=== PATIENT | female | born 1990 | race Two or more races ===

== ENCOUNTER 2016-12-23 10:42 | Emergency (ER) | payer BC, OTHER ==
[2016-12-23 11:10] VITALS: BP 121/89; PULSE 73; TEMP 98.4; BMI 21.9
--- NOTE | 2016-12-23 11:37 | EDPRACDOC ---
- General Information Chief Complaint: Hand Pain Stated Complaint: RT HAND PAIN Time Seen by Provider: 12/23/16 11:21 Information Source: Patient Mode of Arrival: Car Home Medications: Home Medications Ketorolac Tromethamine 10 mg PO Q8H PRN #15 tab 12/23/16 Allergies/Adverse Reactions: Allergies Allergy/AdvReac Type Severity Reaction Status Date / Time Penicillins Allergy Rash-Genera Verified 12/23/16 11:10 lized - History of Present Illness Onset: years HPI: Pt c/o R hand and wrist pain x 1 yr. 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 Pt states pain became worse today after working 13 days straight. Denies injury, redness, forearm or elbow pain. Pt states sometime her R hand will cramp closed and she will have pry it open with other hand. R hand dominate Location: Reports: Right, Hand Dominant Hand: Right Mechanism: Reports: Spontaneous Circumstances: Reports: Unknown Associated Signs & Symptoms: Reports: Numbness, Hand Pain, Wrist Pain ED Past Medical History - History Reviewed Yes Nurses notes reviewed and agree except as marked - Patient Medical History Respiratory History: Reports: Asthma (as child) Psychological History: Denies: Depression - Social Medical History Smoking Status: Never smoker Social History: Reports: Marijuana Use ETOH: None Substance Abuse: Illicit Drugs EDM Review of Systems - Review of Systems Constitutional: No Symptoms Reported. negative: Fever, Chills, Weakness, Fatigue, Loss of Appetite Neurological: Numbness Musculoskeletal: Hand, Wrist Integumentary: No Symptoms Reported. negative: Itching, Rash, Bruising, Wound Allergic/Immunologic: No Symptoms Reported. negative: Hives, Itching Hematologic: No Symptoms Reported. negative: Lymphadenopathy, Easy Bruising, Easy Bleeding Psychiatric: No Symptoms Reported. negative: Anxiety, Depression, Hallucinations, Insomnia, Suicidal - Physical Exam Constitutional: Alert (Awake), No apparent distress Oriented to: Time, Person, Place Last recorded Vital Signs: Last Vital Signs Temp 98.4 F 12/23/16 11:05 Pulse 73 12/23/16 11:05 Resp 18 12/23/16 11:05 BP 121/89 12/23/16 11:05 Pulse Ox 100 12/23/16 11:05 Oxygen Pulse Oxygen Saturation 100 O2 Device Room Air Oxygen Flow Rate Fraction of Inspired Oxygen ( FIO2) - HEENT Head: Normal ( normocephalic) - Respiratory/Cardiovascular Respiratory: Normal - CTA (BBS clear to auscultation without adventitious sounds ) Cardiovascular: Normal (RRR without murmur, gallop or rub) - Musculoskeletal Extremities: Normal (Normal tone, Pulses 2+ No cyanosis or edema, FROM) - Integumentary Skin: Normal, Warm, Dry Lymphatics: Normal (no adenopathy) - Neurologic Memory Impaired: Normal Motor Function: Normal (Normal tone, Pulses 2+ No cyanosis or edema, FROM) Mood Description: Normal Perception: Normal ED Hand Problem Physical Exam - Musculoskeletal Hand: Normal Wrist: Normal Digit: Normal Digit Strength: Normal Nail: Normal Nailbed: Normal Soft Tissue: Normal Distal Function/Circulation: Normal - Integumentary Skin: Normal Lymphatics: - Other Exam Other Exam Findings: + phalen test - Differential Diagnosis DJD Arthritis, Sprain, Other (carpal tunnel syndrome) Decision Time to Discharge: 11:36 - Departure Disposition: Home Condition: Good Final Diagnosis: Carpal tunnel syndrome of right wrist Instructions: Carpal Tunnel Syndrome Exercises (GEN), Carpal Tunnel Syndrome ( ED), RICE: Routine Care for Injuries Education/Counseling Given To: Patient Education/Counseling Given Regarding: Diagnosis, Treatment, Follow Up Referrals: None,No Provider [Primary Care Provider] - One Week Walker Zapata MD [Staff Physician] - One Week Carlos Blakely MD [Staff Physician] - One Week Prescriptions: New Ketorolac Tromethamine 10 mg PO Q8H PRN #15 tab PRN Reason: Pain Forms: Excuse Note
== END 2016-12-23 11:44 | disposition home or self-care (01) ==
LOC: ED 10:42 → EDMC 11:44
DX: G56.01 Carpal tunnel syndrome, right upper limb (principal)
CPT/HCPCS: 99282